=== PATIENT | female | born 1985 | race African-American/Black ===

== ENCOUNTER → 2016-07-21 | Day surgery (SDC) | payer OTHER ==
[~2016-07-21] VITALS: Ht 160 cm; Wt 108.9 kg
--- NOTE | 2016-07-21 16:50 | Operative Report ---
Operative/Inv Procedure Report Surgery Date: 07/21/16 Name of Procedure: Bilateral breast reduction with free nipple graft Pre-Operative Diagnosis: Symptomatic macromastia Post-Operative Diagnosis: Same Estimated Blood Loss: scant (200) Surgeon/[employer]otive Parts Interpreter: MARIUSZ PITTMAN,JOHN Tomlin Anesthesia: general endotracheal tube Operative/Procedure Note Note: Patient was counseled extensively regards the procedure the alternatives risks and expected outcomes as relates to her request for surgical intervention to treat symptomatic macromastia. We talked about the free nipple technique and the patient giving the opportunity to seek a second opinion. We also talked about the increased risk from her remote tobacco use. I specifically mentioned further weight loss can result in breasts are too small for her liking and can only be treated with an out of pocket cost for breast augmentation. She chooses to proceed at this weight. She was given and a SPS informed consent which she has returned sign. We talked about partial complete loss of the nipple graft the fact that wouldn't have sensation will be able to breast-feed and will not have erectile function. Part of the healing might produce pink patchy scarring to the areola color. Patient is a symmetric prior surgery and will be after surgery. She was marked in standing position for an inferior pedicle Queen pattern technique reduction. Informed consent was signed. She was taken to the operating placed supine on the table Venodyne boots are placed and general anesthesia was established and intravenous antibiotics were given. An inferior pedicle Queen pattern technique was performed resecting superior medial and lateral segments. Temporary closure was performed and the patient was put in the sitting position to assess symmetry which was good and the nipple areola complexes were located. She was then placed in the supine position and a 3 layer closure was carried out of all incisions.
== END ==
LOC: STS 07-14 07:00
DX: N62 Hypertrophy of breast (principal); E66.9 Obesity, unspecified; R68.89 Other general symptoms and signs; Z87.891 Personal history of nicotine dependence
CPT/HCPCS: 81025; 88305; J0131; J0690; J2250